=== PATIENT | female | born 1950 | race Caucasian/White ===

== ENCOUNTER → 2016-07-14 | Outpatient (CLI) | payer OTHER ==
[~2016-07-14] MED LIST: ALEVE220 MG PO; CLARITIN10 MG PO; CRANBERRY500 M1 PO; ESTROVEN MAX400 MCG PO; FLORASTOR250 MG PO; GLUCOPHAGE500 MG PO; IRON65 PO; LEVAQUIN 750 M750 MG PO; LEVOTHROID (SY25 MCG PO; LIPITOR10 MG PO; MAG-OX-400(241400 MG PO; NORCO 5-325 TA1 EACH PO; POTASSIUM GLUC500 MG PO; ZESTRIL2.5 MG PO; ZINC50 MG PO
== END | disposition disaster alternative care site (69) ==
LOC: GRAD 08:54
DX: M54.12 Radiculopathy, cervical region (principal); M54.2 Cervicalgia; M47.816 Spondylosis without myelopathy or radiculopathy, lumbar region; M47.22 Other spondylosis with radiculopathy, cervical region; M51.84 Other intervertebral disc disorders, thoracic region; M48.02 Spinal stenosis, cervical region; M25.78 Osteophyte, vertebrae

== ENCOUNTER 2016-09-20 19:32 | Observation (INO) | payer OTHER ==
[~2016-09-20] VITALS: Ht 162.6 cm; Wt 114.1 kg
--- NOTE | ~2016-09-20 | ER ---
PATIENT'S NAME: ANDREW HUTCHISON [facility] AGE: 65 Y [address] ROOM: [address] [address] LOCATION: [facility] [place] ADMIT DATE: 09/20/2016 ER/Outpatient Report DISCHARGE DATE: FAMILY PHYSICIAN: PHYSICIAN, UNKNOWN ATTENDING PHYSICIAN: ORAL MURO V Time of Arrival: 1953 hours. Time of Exam: 2007 hours. CHIEF COMPLAINT: Right flank pain. HISTORY OF PRESENT ILLNESS: The patient states approximately 1 o'clock today, she began having some right flank pain. It is gradually progressed and gotten worsen. She has been nauseated, no vomiting. Denies having fever or chills. She has not had any urinary discomfort or urinary frequency. She has not noted any blood in her urine. Had normal bowel movement this morning. States she did have a kidney stone several years ago, did have to have a stent done at that time. ALLERGIES: PENICILLIN AND SULFA. CURRENT MEDICATIONS: On her chart and were reviewed by me. PAST MEDICAL HISTORY: Hypothyroidism, noninsulin dependent diabetes, hypercholesterol, hypertension, and GERD. PAST SURGICAL HISTORY: Renal stone with stent in 2009, bilateral knee replacement, cholecystectomy, and gastric bypass in 2002. SOCIAL HISTORY: She presents tonight accompanied by her . She lives in [place], doctors in [place] primarily. Denies use of tobacco, drugs, or alcohol. REVIEW OF SYSTEMS: All negative other than those mentioned in the HPI. PHYSICAL EXAMINATION: VITAL SIGNS: She weighed 115 kg. Blood pressure is 154/87, pulse of 84, respirations 20, temperature of 99.6 tympanic, O2 saturation was 98% on room PATIENT'S NAME: ANDREW HUTCHISON [facility] AGE: 65 Y [address] ROOM: [address] [address] LOCATION: [facility] [place] ADMIT DATE: 09/20/2016 ER/Outpatient Report DISCHARGE DATE: FAMILY PHYSICIAN: PHYSICIAN, UNKNOWN ATTENDING PHYSICIAN: ORAL MURO V air. GENERAL APPEARANCE: She is awake, alert, and oriented x4. SKIN: [place], warm, and dry. LUNGS: Respirations are even and nonlabored. Lung sounds were clear throughout. HEART: Regular rate and rhythm. ABDOMEN: Soft, nondistended. Bowel sounds are present. She is tender in the right flank area. She does have some mild tenderness in the right lower quadrant of her abdomen. MUSCULOSKELETAL: She moves all extremities strongly and equally. No peripheral edema noted. Positive peripheral pulses. EMERGENCY DEPARTMENT COURSE: Saline lock was initiated. Fluids were started at a wide-open rate. She was given Zofran 4 mg IV and Toradol 30 mg IV. LABORATORY WORK: CBC shows a white count of 13.3, hemoglobin is 13.1, with hematocrit of 39.6. Chem-panel is within normal limits. Her blood sugar is 163. Clean-catch UA was obtained, she does have 100 leukocytes, positive nitrites, micro shows 10- 20 whites with many bacteria. Acetone was negative. Lactate was 1.1. CT scan renal protocol was completed. Radiologist reports patient has a 6 mm stone at the UV junction. I did call and talk with Dr. Bunch. He would like the patient to be n.p.o. after midnight and for the hospitalist admit her. I did talk with Dr. Muro . He would like to have blood cultures done which were drawn and then the patient was started on Levaquin 750 mg IV. IMPRESSION: Renal calculi with urinary tract infection. PLAN: The patient will be admitted for care of the hospitalist and Dr. Bunch. The patient and her are aware of plan of care. NISREEN MCCALLUM APRN FOR MD LUIGI BURK/maría elena /[id number] d: 09/20/16 2358 t: 09/23/16 1809, OUTPATIENT REPORT
--- NOTE | ~2016-09-20 | HP ---
PATIENT'S NAME: KIANNA [facility] AGE: 65 Y [address] ROOM: [place] [address] LOCATION: [facility] [place] ADMIT DATE: 09/20/2016 History & Physical DISCHARGE DATE: FAMILY PHYSICIAN: Physician, Unknown ATTENDING PHYSICIAN: Carlos Anders V DATE OF SERVICE: CHIEF COMPLAINT: Right flank pain. HISTORY OF PRESENT ILLNESS: The patient is a 65-year-old female with past medical history of urolithiasis in addition to remainder of past medical history below. The patient developed right flank pain which is similar to her from her prior episodes and presented to the ER. In the ER, she was found to have a high-grade 6 x 3 mm obstructive stone at the right ureterovesical junction with periarterial and perinephric edema. The patient had a low-grade temperature and a white count of 13. She denies any subjective fevers, syncope, or diaphoresis. REVIEW OF SYSTEMS: All systems have been reviewed and are negative aside from pertinent positives mentioned above. PAST MEDICAL HISTORY: 1. Recurrent urolithiasis. 2. Vop-ddclnvw-shzsphryp diabetes. 3. Essential hypertension. 4. Hypercholesterolemia. SOCIAL HISTORY: Negative for any ongoing toxic habits. FAMILY HISTORY: Reviewed and noncontributory due to a known underlying etiology for the patient's presentation. CURRENT MEDICATIONS: 1. Atorvastatin. 2. Cranberry capsule. 3. Iron. 4. Levothyroxine. 5. Lisinopril. 6. Loratadine. PATIENT'S NAME: KIANNA [facility] AGE: 65 Y [address] ROOM: [place] [address] LOCATION: [facility] [place] ADMIT DATE: 09/20/2016 History & Physical DISCHARGE DATE: FAMILY PHYSICIAN: Physician, Unknown ATTENDING PHYSICIAN: Carlos Anders V 7. Magnesium oxide. 8. Metformin. 9. Estroven. 10. Naproxen. 11. Potassium gluconate. 12. Zinc. PHYSICAL EXAMINATION: VITAL SIGNS: Blood pressure 185/86, heart rate is 86, saturating 96% on room air, afebrile, respirations 16. GENERAL: Appears morbidly obese, middle-aged female, in no acute distress. NEUROLOGIC: Nonfocal. EYES: Pupils are equal and reactive to light. LYMPHATIC: No cervical lymphadenopathy. ENDOCRINE: No thyromegaly. LUNGS: Clear to auscultation in all [place]. HEART: Rate is regular with no appreciable murmurs, gallops, or rubs. GI: Abdomen is soft and nontender. : Deferred due to known presence of a stone. VASCULAR: 2+ pedal pulses. MUSCULOSKELETAL: Unremarkable. SKIN: Warm and dry. PSYCHIATRIC: Reveals appropriate mood, cognition, and affect. LABORATORY DATA: Review of the studies done in the ER significant for: Blood glucose of 163. White count of 13.3. Positive urine. Negative procalcitonin. ASSESSMENT AND PLAN: This is a 65-year-old female who will be admitted for treatment of urolithiasis with strongly suspected, associated urinary tract infection. Individual problems to be addressed as follows. 1. Urinary tract infection due to a high-grade stone. The patient was started on Levaquin and we will continue that. We will follow up her blood cultures and urine cultures drawn in the ER. At this point, the patient is planned for the OR for tomorrow morning for stone removal. 2. Uqf-htpfpmn-prxwvhnzf diabetes. We will continue her on metformin. 3. Accelerated hypertension. We will restart her medications and provide her with p.r.n. hydralazine for blood pressure control. 4. Hypercholesterolemia. We will continue her on her statin. 5. Symptom control provided with IV fluids, antiemetics, analgesics, and hold off on her iron to prevent constipation. Additional management will depend on clinical course. Time dedicated for this patient's encounter is 25 minutes. PATIENT'S NAME: ANDREW HUTCHISON [facility] AGE: 65 Y [address] ROOM: [place] [address] LOCATION: [facility] [place] ADMIT DATE: 09/20/2016 History & Physical DISCHARGE DATE: FAMILY PHYSICIAN: Physician, Unknown ATTENDING PHYSICIAN: Carlos Anders V MD MAYRA PIERSON/maría elena /[id number] D: [id number] T: [id number] HISTORY & PHYSICAL
--- NOTE | ~2016-09-20 | OR ---
PATIENT'S NAME: ANDREW HUTCHISON [facility] AGE: 65 Y [address] ROOM: [address] [address] LOCATION: [facility] [place] ADMIT DATE: 09/20/2016 OR/Procedure Report DISCHARGE DATE: FAMILY PHYSICIAN: PHYSICIAN, UNKNOWN ATTENDING PHYSICIAN: ORAL MURO V SURGEON: Shaista Rodríguez MD HULL SORTER: DATE OF PROCEDURE: 09/21/2016 PREOPERATIVE DIAGNOSIS: Right distal ureteral calculus. POSTOPERATIVE DIAGNOSIS: Right distal ureteral calculus. PROCEDURE: Cystoscopy with right ureteroscopy and stone basket extraction followed by right ureteral stent placement. ANESTHESIA: Sedation. INDICATION: This is a 65-year-old lady admitted through the emergency room yesterday with a distal right stone. It was 6 mm. She has some experience with this. She had a stone in 2009 on the right side. By report, she ended up with a percutaneous nephrostomy tube at that time. Based on the size of the stone and her symptoms, she was admitted for further evaluation and management. She presents at this time for intervention. DESCRIPTION OF PROCEDURE: Having obtained her informed consent, the patient is taken to the cystoscopy suite. She is prepped and draped sterilely and in lithotomy position. IV sedation is administered. A 21-Burkinan cystoscope is assembled and guided into the urethra. The course of the urethra is remarkable for a cystocele. We have to look down through her bladder neck and her bladder neck is below the symphysis. The bladder has some floating debris. There is a question of an associated urinary tract infection. Dr. Muro has her on [facility]. Bladder examination is undertaken using the 30- and 70-degree lenses. There are no other abnormalities. Fluoroscopy is undertaken. Her stone is visualized as anticipated from the CT scan. It is in the distal third. I manipulated the guidewire beyond it. We have a gush of retained fluid and debris. With a 6 mm stone, she merits dilation. A balloon catheter is passed over the guidewire. The orifice and intramural tunnel are gently dilated. I now passed the semi-rigid ureteroscope. The stone is visualized as anticipated. We have the laser on standby, but if I engaged the stone length PATIENT'S NAME: ANDREW HUTCHISON [facility] AGE: 65 Y [address] ROOM: [facility] [address] LOCATION: [facility] [place] ADMIT DATE: 09/20/2016 OR/Procedure Report DISCHARGE DATE: FAMILY PHYSICIAN: PHYSICIAN, UNKNOWN ATTENDING PHYSICIAN: ORAL MURO, I believe we should be able to bring it out without tension. Therefore, a Nitinol basket is passed beyond the stone. It is manipulated into the basket in a length elmore fashion and we pulled it out without tension. With the requisite dilation, I opted to stent her temporarily. The safety wire is back loaded into the cystoscope. Over that, we passed a 4.8 multi- length stent. We have a nice level of placement cystoscopically and fluoroscopically. The Dangler string is left in place. The bladder is drained and the case is concluded. The patient tolerated the procedure well. Blood loss is negligible. The stone is sent for analysis. The patient returned to the Recovery awake and in stable condition. SHAISTA RODRÍGUEZ MD [facility]/modl /[id number] CC: Agueda Tavera MD d: 09/21/16 1320 t: 10/05/16 1309, OPERATIVE SUMMARY
[2016-09-20 20:23] LABS: BILIRUBIN URINE NEGATIVE (NEGATIVE); BLOOD URINE 250 /UL (NEGATIVE); COLOR URINE YELLOW (YELLOW); GLUCOSE URINE NEGATIVE (NEGATIVE); KETONE URINE 150 mg/dL (NEGATIVE); LEUKOCYTES URINE 100 /UL (NEGATIVE); NITRITE URINE POSITIVE (NEGATIVE); PROTEIN URINE 30 mg/dL (NEGATIVE); SPEC GRAVITY URINE 1.025 (1.003-1.035); TURBIDITY URINE CLEAR (CLEAR); UROBILINOGEN URINE NORMAL (NORMAL)
[2016-09-20 20:29] LABS: BACTERIA URINE MANY (NEGATIVE); MUCUS URINE 1+ (NEGATIVE); RBC URINE 50-100 #/HPF (NEGATIVE)
[2016-09-20 20:33] LABS: BASOPHIL # 0.1 K/uL (0.0-0.2); BASOPHIL % 0.4 %; EOSINOPHIL % 0.1 %; HEMATOCRIT 39.6 % (33.0-46.0); HEMOGLOBIN 13.1 g/dL (10.0-15.0); IMMATURE GRANULOCYTE # 0.1 K/uL (0.0-0.3); IMMATURE GRANULOCYTE % 0.6 %; LYMPHOCYTE # 0.9 K/uL (0.8-4.0); LYMPHOCYTE % 6.9 %; MCH 27.4 pg (27.0-34.0); MCHC 33.1 gm/dL (32.0-36.5); MCV 82.8 fl (83.0-98.0); MONOCYTE # 0.6 K/uL (0.0-1.0); MONOCYTE % 4.4 %; MPV 11.2 fl (9.4-12.4); NEUTROPHIL # (ANC) 11.7 K/uL (1.8-7.8); NEUTROPHIL % 87.6 %; NRBC % 0 /100WBC (0-0.00); PLATELET COUNT 238 K/uL (150-450); RBC 4.78 M/uL (3.50-5.50); RDW-CV 14.3 % (11.9-14.6); WBC 13.3 K/uL (4.0-11.0)
[2016-09-20 20:51] LABS: ALBUMIN 3.8 gm/dL (3.5-5.0); ALK PHOS 101 IU/L (33-138); ALT 14 IU/L (12-78); ANION GAP 12.4 (10.0-19.0); AST 18 IU/L (10-40); BLOOD UREA NITROGEN 21 mg/dL (6-24); CALCIUM 8.9 mg/dL (8.5-10.5); CHLORIDE 106 mMol/L (96-110); CO2 23 mMol/L (22-32); CREATININE 0.9 mg/dL (0.5-1.1); ESTIMATED GFR (MDRD EQUATION) > 60; POTASSIUM 4.4 mMol/L (3.7-5.1); SODIUM 137 mMol/L (135-145); TOTAL BILIRUBIN 0.4 mg/dL (0.0-1.5); TOTAL PROTEIN 7.3 g/dL (6.0-8.4)
[2016-09-20] MEDS ORDERED: GLUCOPHAGE500 MG PO (22:58)
[2016-09-20] MEDS ORDERED: ZESTRIL2.5 MG PO (22:58)
[2016-09-20] MEDS ORDERED: LEVOTHROID (SY25 MCG PO (22:59)
[2016-09-20] MEDS ORDERED: LIPITOR10 MG PO (22:59)
[2016-09-20] MEDS ORDERED: MAG-OX-400(241400 MG PO (23:00)
[2016-09-20] MEDS ORDERED: ALEVE220 MG PO (23:00)
[2016-09-20] MEDS ORDERED: POTASSIUM GLUC500 MG PO (23:04)
[2016-09-20] MEDS ORDERED: ESTROVEN MAX400 MCG PO (23:06)
[2016-09-20] MEDS ORDERED: CRANBERRY500 M1 PO (23:07)
[2016-09-20] MEDS ORDERED: IRON65 PO (23:07)
[2016-09-20] MEDS ORDERED: CLARITIN10 MG PO (23:08)
[2016-09-20] MEDS ORDERED: ZINC50 MG PO (23:08)
--- NOTE | 2016-09-21 00:50 | NUR ---
Pt admitted to floor from ER around 2210 for a right side obstructing kidney stone. Pt started she started having abdominal pain and diarrhea around 1330 and the pain progressively got worse. Pain because localized in right flank area and radiating around to abdomen and down into her groin. Pt stated she did notice a decrease in urine output today. She stated no temps that she knows about. Per ER report CT shows a 6mm obstructing kidney stone. Does have a history of kidney stones. Significant health history includes: diabetic, hypertension, hypercholesterolemia, and anemia. Surgical history includes: both knees replaced, gastric bypass in 2002, carpal tunnel release, open michelle, colonoscopies and previous cysto with stent insertion. Pt is medication controlled diabetic who checks and blood sugar once daily in the morning. Allergies to PCN and sulfa.
--- NOTE | 2016-09-21 05:42 | NUR ---
Significant Event: Pt alert and oriented. Cooperative with cares. Has rested off and on throughout the night. Up with stand by assist. 1 tab of norco given with relief noted. IV fluids infusing without difficulty. Finished IV levaquin that was started in the ER. Has strained all urine with no stones noted. Has been NPO since midnight for surgery today. Hypertensive when first got up to floor, blood pressure better after HS meds given. Other vital signs stable. Follow up:
[2016-09-21] MEDS ORDERED: FLORASTOR250 MG PO (11:43)
[2016-09-21] MEDS ORDERED: LEVAQUIN 750 M750 MG PO (11:44)
[2016-09-21] MEDS ORDERED: NORCO 5-325 TA1 EACH PO (11:45)
--- NOTE | 2016-09-21 19:00 | NUR ---
Patient was taken to surgery this morning for a cystoscopy with lithotripsy/ stent with sting. Patient returned from OR about 1030. Joshua tolerated surgery well. She was eating lunch soon after returning to the floor. Drinking water. Saline locked IV. Patient was discharged in the afternoon by . Patient was given information regarding cystoscopy, lithotripsy, norco, levaquin, dvt prevention. Patient stated understanding of all teaching. Had no questions on dismissal [facility] education. Gave patient dismissal instructions. Also told her about how to pull out the stent, but if she did not feel comfortable told her to go to the [facility] and they will pull it out for her. Stated understanding. Patient IV was discontinued. Took patient out to the revolving door, walking with no complications. Dismissed at 1410.
== END 2016-09-21 14:10 | disposition disaster alternative care site (69) ==
LOC: GMED 19:32 → GMSU 21:41
PROVIDERS: Nurse Practitioner Family; ADMIT Internal Medicine
PROC: 0T768DZ Dilation of Right Ureter with Intraluminal Device, Via Natural or Artificial Opening Endoscopic (ICD-10-PCS; principal; 2016-09-21)
DX: N20.1 Calculus of ureter (principal); E11.9 Type 2 diabetes mellitus without complications; I10 Essential (primary) hypertension; E66.9 Obesity, unspecified; E78.00 Pure hypercholesterolemia, unspecified; E03.9 Hypothyroidism, unspecified; K21.9 Gastro-esophageal reflux disease without esophagitis; M19.90 Unspecified osteoarthritis, unspecified site; Z68.41 Body mass index [BMI] 40.0-44.9, adult; Z88.0 Allergy status to penicillin; Z88.2 Allergy status to sulfonamides; Z88.8 Allergy status to other drugs, medicaments and biological substances; Z79.899 Other long term (current) drug therapy; Z98.890 Other specified postprocedural states; Z96.653 Presence of artificial knee joint, bilateral; Z90.49 Acquired absence of other specified parts of digestive tract
CPT/HCPCS: C1725; C1769; C2617; G0378; J1885; J1956; J2405; J7030; J7050